=== PATIENT | male | born 1995 | race Caucasian/White ===

== ENCOUNTER 2021-09-23 18:50 | Emergency (ER) | payer OTHER ==
[2021-09-23 19:55] VITALS: TEMP 97
[2021-09-23] MEDS: diphenhydrAMINE 50 MG/ML 1 ML VIAL IVP STA (21:13)
[2021-09-23] MEDS: SODIUM CHLORIDE 0.9% 1,000 ML IV STA (21:13)
[2021-09-23] MEDS: ONDANSETRON 4 MG/2 ML VIAL IVP STA (21:13)
[2021-09-23] MEDS: MORPHINE SULFATE 4 MG/ML SYRINGE IV STA (21:14)
--- NOTE | 2021-09-23 21:55 | CT ---
EXAMINATION TYPE: CT brain wo con DATE OF EXAM: 09/23/2021 COMPARISON: None HISTORY: Headache. CT DLP: 1143.4 mGycm Automated exposure control for dose reduction was used. Images obtained of the brain without contrast. Ventricles have normal size. There is no mass effect nor midline shift. There is no sign of intracran ial hemorrhage. Calvarium is intact. IMPRESSION: Normal unenhanced head CT scan.
--- NOTE | 2021-09-23 22:30 | ED ---
Headache HPI - General Chief Complaint: Headache Stated Complaint: Fever/Headache Time Seen by Provider: 09/23/21 20:55 Source: patient, RN notes reviewed Mode of arrival: wheelchair Limitations: no limitations - History of Present Illness Initial Comments: Patient is a 25-year-old male that presents to emergency room complaining of a headache. He denied any history of headaches or chronic migraines. He notes is headache is ever had. He notes that he's been 10 days post Covid. Patient notes that this is his only complaint. He notes that the headache is made worse by loud noises and bright lights. Patient was otherwise well- appearing. He denied chest pain shortness of breath headache nausea vomiting diarrhea constipation fever fatigue chills. - Related Data Allergies Allergy/AdvReac Type Severity Reaction Status Date / Time No Known Allergies Allergy Verified 09/23/21 19:51 Review of Systems ROS Statement: Those systems with pertinent positive or pertinent negative responses have been documented in the HPI. ROS Other: All systems not noted in ROS Statement are negative. Past Medical History Past Medical History: No Reported History History of Any Multi-Drug Resistant Organisms: None Reported Past Surgical History: No Surgical Hx Reported Past Psychological History: Anxiety Smoking Status: Current every day smoker Past Alcohol Use History: None Reported Past Drug Use History: Marijuana General Exam Limitations: no limitations General appearance: alert, in no apparent distress Head exam: Present: atraumatic, normocephalic, normal inspection Eye exam: Present: normal appearance, PERRL, EOMI. Absent: scleral icterus, conjunctival injection, periorbital swelling ENT exam: Present: normal exam, mucous membranes moist Neck exam: Present: normal inspection Respiratory exam: Present: normal lung sounds bilaterally. Absent: respiratory distress, wheezes, rales, rhonchi, stridor Cardiovascular Exam: Present: regular rate, normal rhythm, normal heart sounds. Absent: systolic murmur, diastolic murmur, rubs, gallop, clicks GI/Abdominal exam: Present: soft, normal bowel sounds. Absent: distended, tenderness, guarding, rebound, rigid Extremities exam: Present: normal inspection, full ROM, normal capillary refill. Absent: tenderness, pedal edema, joint swelling, calf tenderness Neurological exam: Present: alert, oriented X3 Psychiatric exam: Present: normal affect, normal mood Skin exam: Present: warm, dry, intact, normal color. Absent: rash Course Vital Signs 09/23/21 19:51 Temperature 97.0 F L Pulse Rate 73 Respiratory 20 Rate Blood Pressure 150/95 O2 Sat by Pulse 97 Oximetry Medical Decision Making - Medical Decision Making 25-year-old male with a headache. 1 L normal saline, 50 g Benadryl, 4 mg of morphine, 4 mg Zofran, CT of the brain ordered. CT the brain is negative for any acute process. Patient is agreeable discharge home with conservative management with Tylenol Motrin and fluids. Case discussed with Dr. Isidro, patient discharge home. Disposition Clinical Impression: Migraine headache Disposition: HOME SELF-CARE Condition: Stable Instructions (If sedation given, give patient instructions): Acute Headache (ED) Additional Instructions: Please return to the Emergency Department if symptoms worsen or any other concerns. Follow-up with primary care 1-2 days. Use Tylenol Motrin as needed for any aches pains or fevers. Can take Benadryl to help with migraine type headache. Increase fluids. Is patient prescribed a controlled substance at d/c from ED?: No Referrals: None,Stated [Primary Care Provider] - 1-2 days Time of Disposition: 22:30
[2021-09-23] MEDS: MORPHINE SULFATE 4 MG/ML SYRINGE IVP STA (22:36)
[2021-09-23 23:11] VITALS: BP 148/88; PULSE 88; RESP 16
== END 2021-09-23 23:11 | disposition home or self-care (01) ==
LOC: EC 18:50
DX: G43.909 Migraine, unspecified, not intractable, without status migrainosus (principal); F17.200 Nicotine dependence, unspecified, uncomplicated; F12.90 Cannabis use, unspecified, uncomplicated
CPT/HCPCS: 70450; 99284; 96374; 96375 ×2; 96376; 96361 ×2; J2270; J1200; J2405